=== PATIENT | female | born 1950 | race African-American/Black ===

== ENCOUNTER 2017-10-14 12:42 | Outpatient (CLI) | payer MEDICARE ==
--- NOTE | 2017-10-14 13:46 | MMO ---
SCREENING MAMMOGRAPHY: Date: 10-14-17 Comparison: 09-22-16, 08-07-15 History: Screening mammography. FINDINGS: This study is interpreted with the assistance of computer aided detection. Scattered fibroglandular densities are present. No architectural distortion of concerning calcification is seen. There is a questionable new focal asymmetry identified on left MLO view inferiorly, intermediate dept h, measuring in the 7 mm range. IMPRESSION: BIRADS 0 - incomplete. Further imaging assessment advised. Question new 7 mm focal asymmetry on left MLO view for which spot magnification compression imaging a nd focal pressed ultrasound suggested. POS: [facility]
== END 2017-10-14 12:43 | disposition home or self-care (01) ==
LOC: SCSMAMMO 12:42
PROVIDERS: ATTEND Family Medicine
DX: Z12.31 Encounter for screening mammogram for malignant neoplasm of breast (principal)
CPT/HCPCS: 77067

== ENCOUNTER 2017-10-21 09:05 | Outpatient (CLI) | payer MEDICARE | END 2017-10-21 09:06 | disposition home or self-care (01) | LOC: BICMAMMO 09:05 | PROVIDERS: ATTEND Family Medicine | DX: N64.89 Other specified disorders of breast (principal); Z80.3 Family history of malignant neoplasm of breast | CPT/HCPCS: 76642; 77065; G0279 ==

== ENCOUNTER → 2017-10-26 | Outpatient (CLI) | payer MEDICARE ==
--- NOTE | 2017-10-26 11:06 | RAD ---
TWO VIEWS CHEST: HISTORY: Dyspnea. COMPARISON: None. FINDINGS: Two views of the chest show normal sized cardiomediastinal silhouette. There is no evidence of consol idation, mass, or pleural effusion. The bones are unremarkable. IMPRESSION: No evidence of acute cardiopulmonary disease. POS: [facility]
== END ==
LOC: RAD 16:30
PROVIDERS: ATTEND Family Medicine
DX: R06.00 Dyspnea, unspecified (principal)
CPT/HCPCS: 71046

== ENCOUNTER 2017-11-16 10:10 | Outpatient (CLI) | payer MEDICARE ==
--- NOTE | 2017-11-16 11:50 | RAD ---
RADIOGRAPH CHEST 2 VIEWS: HISTORY: 67-year-old female with dyspnea. FINDINGS: There is no air space density, pulmonary edema, pleural effusion, pneumothorax, or cardiomegaly. IMPRESSION: No acute cardiopulmonary findings. jn [] POS: [facility]
== END 2017-11-16 10:11 | disposition home or self-care (01) ==
LOC: RAD 10:10
PROVIDERS: ATTEND Orthopaedic Surgery Sports Medicine
DX: R06.00 Dyspnea, unspecified (principal)
CPT/HCPCS: 71046

== ENCOUNTER 2017-12-05 01:49 | Emergency (ER) | payer MEDICARE ==
[2017-12-05 02:11] LABS: Bilirubin Negative (Negative); Blood, Urine Large (Negative); Glucose, Urine (Dipstick) Negative (Negative); Leukocyte Negative (Negative); Nitrite Negative (Negative); Protein, Urine (Dipstick) 100 mg/dL (Neg-Trace); Urobilinogen 0.2 mg/dL (0.2-1.0); pH, Urine 5.5 (5.0-9.0)
[2017-12-05 02:12] LABS: Clarity Hazy (Clear); Specific Gravity, Urine 1.026 (1.005-1.030)
[2017-12-05 02:13] LABS: Bacteria/HPF 1+ HPF (None Seen); Hyaline Casts/LPF 0-3 HYALINE CAST LPF (0-3 Hyaline); WBC/HPF 0-3 HPF (0-3)
[2017-12-05] MEDS ORDERED: traMADol HCl 50 MG TAB ONE (02:37)
[2017-12-05] MEDS ORDERED: Nitrofurantoin Macrocrystal 50 MG CAP ONE ×2 (02:38)
== END 2017-12-05 03:02 | disposition home or self-care (01) ==
LOC: SCSER 01:49
DX: N39.0 Urinary tract infection, site not specified (principal); K21.9 Gastro-esophageal reflux disease without esophagitis; J45.909 Unspecified asthma, uncomplicated; Z79.899 Other long term (current) drug therapy
CPT/HCPCS: 81003; 81015; 87086; 99283

== ENCOUNTER → 2017-12-20 | Outpatient (CLI) | payer MEDICARE | LOC: SLEEPLAB 17:00 | PROVIDERS: ATTEND Internal Medicine | DX: G47.33 Obstructive sleep apnea (adult) (pediatric) (principal); K21.9 Gastro-esophageal reflux disease without esophagitis | CPT/HCPCS: 95806 ==

== ENCOUNTER 2018-03-09 11:59 | Outpatient (CLI) | payer MEDICARE ==
--- NOTE | 2018-03-09 14:19 | CT ---
CT THORAX WITH IV CONTRAST: Date: 03-09-18 History: Cough for four years. Patient feels that something is stuck in throat. Comparison: None available. FINDINGS: The lungs are clear without evidence of a pulmonary nodule, mass, or pleural effusion. Tracheobronchi al airways also appear clear. There is no evidence of lymphadenopathy. The thoracic aorta is normal in caliber without evidence of aortic dissection. Visualized upper abdomen has a normal CT appearance. Osseous structures are intact. IMPRESSION: No acute findings are seen in the chest. POS: [facility]
== END 2018-03-09 12:00 | disposition home or self-care (01) ==
LOC: CT 11:59
PROVIDERS: ATTEND Internal Medicine
DX: R05 Cough (principal); G47.33 Obstructive sleep apnea (adult) (pediatric)
CPT/HCPCS: 71260; 82565; 94060; 94727; 94729

== ENCOUNTER 2018-10-25 08:24 | Outpatient (CLI) | payer MEDICARE ==
--- NOTE | 2018-10-25 09:49 | ULT ---
LEFT BREAST ULTRASOUND: Date: 10-25-18 Comparison: 10-21-17 History: Re-evaluate hypoechoic lesions seen on prior imaging. Technique: Multiplanar grayscale sonographic imaging of the left breast at the 5 o'clock and 9 o'cloc k position obtained. A stable hypoechoic area is seen at the 5 o'clock position of the left breast. T his finding is lobulated and hypoechoic with no internal blood flow and thin internal septations. Fin dings are most consistent with a cluster of small cysts. This could represent a normal intramamillary node as well. At the 9 o'clock position there is a 3 x 2 mm hypoechoic area which likely represents a small cyst as well. No solid lesion or suspicious mass. No abnormal shadowing. IMPRESSION: BIRADS category 2 - benign findings. Recommend annual screening mammography. POS: [facility]
--- NOTE | 2018-10-25 10:10 | MMO ---
Bilateral MAMMO Bilat Diag [facility]. CLINICAL HISTORY: Patient is 68 years old and is seen for diagnostic exam. The patient has the following family history of breast cancer: paternal aunt, great. The patient has no personal history of cancer. The patient has a history of right Excisional Biopsy in 2000 - benign. VIEWS: The views performed were: bilateral craniocaudal with tomosynthesis; bilateral mediolateral oblique with tomosynthesis; and bilateral mediolateral. FILMS COMPARED: The present examination has been compared to prior imaging studies performed at [facility] on 10/21/2017 and 10/25/2018, and at [facility] on 08/07/2015, 09/22/2016 and 10/14/2017. MAMMOGRAM FINDINGS: There are scattered fibroglandular densities. The area of concern noted within the left breast on prior imaging is less conspicuous on this examination. No concerning findings are seen on mammography or sonographic assessment. There are no suspicious masses, suspicious calcifications, or new areas of architectural distortion. IMPRESSION: THERE IS NO MAMMOGRAPHIC EVIDENCE OF MALIGNANCY. A ROUTINE FOLLOW-UP MAMMOGRAM IN 1 YEAR IS RECOMMENDED. THE RESULTS OF THIS EXAM WERE SENT TO THE PATIENT. ACR BI-RADS Category 2 - Benign finding MAMMOGRAPHY NOTE: 1. A negative mammogram report should not delay a biopsy if a dominant of clinically suspicious mass is present. 2. Approximately 10% to 15% of breast cancers are not detected by mammography. 3. Adenosis and dense breasts may obscure an underlying neoplasm.
--- NOTE | 2018-10-25 10:58 | BD ---
Exam: DEXA Bone Density History: Menopausal Lumbar Spine: BMD (g/cm2) L1 0.783 T-Score: -1.9 L2 0.765 T-Score: -2.4 L3 0.755 T-Score: -3.0 L4 0.929 T-Score: -1.2 L1-L4 0.813 T-Score: -2.1 Evidence for osteopenia with increased risk for fracture. Femoral Neck: 0.671 T-Score: -1.6 Total Femur: 0.887 T-Score: -0.5 Evidence for osteopenia with increased risk for fracture. Impression: FRAX score: Major osteoporotic fracture 4.2%, hip fracture 0.5%. POS: [facility]
== END 2018-10-25 08:25 | disposition home or self-care (01) ==
LOC: BICMAMMO 08:24
PROVIDERS: ATTEND Family Medicine
DX: Z78.0 Asymptomatic menopausal state (principal); R92.8 Other abnormal and inconclusive findings on diagnostic imaging of breast; M85.89 Other specified disorders of bone density and structure, multiple sites; Z80.3 Family history of malignant neoplasm of breast
CPT/HCPCS: 76642; 77066; 77080; G0279

== ENCOUNTER 2020-01-30 08:40 | Outpatient (CLI) | payer MEDICARE ==
--- NOTE | 2020-01-30 10:49 | MMO ---
Bilateral MAMMO Bilat Screen [facility]. CLINICAL HISTORY: Patient is 69 years old and is seen for screening. The patient has the following family history of breast cancer: paternal aunt, great. The patient has no personal history of cancer. The patient has a history of right Excisional Biopsy in 2000 - benign. VIEWS: The views performed were: bilateral craniocaudal with tomosynthesis and bilateral mediolateral oblique with tomosynthesis. FILMS COMPARED: The present examination has been compared to prior imaging studies performed at [facility] on 10/21/2017 and 10/25/2018, and at [facility] on 10/14/2017. This study has been interpreted with the assistance of computer-aided detection. MAMMOGRAM FINDINGS: There are scattered fibroglandular densities. There are no suspicious masses, suspicious calcifications, or new areas of architectural distortion. IMPRESSION: THERE IS NO MAMMOGRAPHIC EVIDENCE OF MALIGNANCY. A ROUTINE FOLLOW-UP MAMMOGRAM IN 1 YEAR IS RECOMMENDED. THE RESULTS OF THIS EXAM WERE SENT TO THE PATIENT. ACR BI-RADS Category 1 - Negative MAMMOGRAPHY NOTE: 1. A negative mammogram report should not delay a biopsy if a dominant of clinically suspicious mass is present. 2. Approximately 10% to 15% of breast cancers are not detected by mammography. 3. Adenosis and dense breasts may obscure an underlying neoplasm. Reported by: NATE SOTO MD Electonically Signed: [id number]
== END 2020-01-30 08:41 | disposition home or self-care (01) ==
LOC: BICMAMMO 08:40
PROVIDERS: ATTEND Family Medicine
DX: Z12.31 Encounter for screening mammogram for malignant neoplasm of breast (principal); Z80.3 Family history of malignant neoplasm of breast; Z91.89 Other specified personal risk factors, not elsewhere classified
CPT/HCPCS: 77063; 77067

== ENCOUNTER 2021-07-07 07:43 | Outpatient (CLI) | payer MEDICARE | END 2021-07-07 07:44 | disposition home or self-care (01) | LOC: CT 07:43 | PROVIDERS: ATTEND Family Medicine | DX: R10.30 Lower abdominal pain, unspecified (principal); N20.0 Calculus of kidney; N28.1 Cyst of kidney, acquired; K76.89 Other specified diseases of liver; K40.90 Unilateral inguinal hernia, without obstruction or gangrene, not specified as recurrent; L90.5 Scar conditions and fibrosis of skin | CPT/HCPCS: 74177 ==

== ENCOUNTER 2021-07-17 12:15 | Outpatient (CLI) | payer MEDICARE | END 2021-07-17 12:16 | disposition home or self-care (01) | LOC: BICMAMMO 12:15 | PROVIDERS: ATTEND Family Medicine | DX: Z12.31 Encounter for screening mammogram for malignant neoplasm of breast (principal); Z80.3 Family history of malignant neoplasm of breast; Z91.89 Other specified personal risk factors, not elsewhere classified | CPT/HCPCS: 77063; 77067 ==

== ENCOUNTER 2023-01-01 07:59 | Outpatient (CLI) | payer MEDICARE | END 2023-01-01 08:00 | disposition home or self-care (01) | LOC: BICMAMMO 07:59 | PROVIDERS: ATTEND Family Medicine | DX: Z12.31 Encounter for screening mammogram for malignant neoplasm of breast (principal); Z13.820 Encounter for screening for osteoporosis; M85.89 Other specified disorders of bone density and structure, multiple sites; Z80.3 Family history of malignant neoplasm of breast; Z78.0 Asymptomatic menopausal state; Z91.89 Other specified personal risk factors, not elsewhere classified | CPT/HCPCS: 77063; 77067; 77080 ==

== ENCOUNTER 2023-02-22 13:14 | Outpatient (CLI) | payer MEDICARE | END 2023-02-22 13:15 | disposition home or self-care (01) | LOC: BICMRI 13:14 | PROVIDERS: ATTEND Nurse Practitioner Family | DX: R51.9 Headache, unspecified (principal); I73.00 Raynaud's syndrome without gangrene; R53.82 Chronic fatigue, unspecified; I99.9 Unspecified disorder of circulatory system | CPT/HCPCS: 70551 ==

== ENCOUNTER 2024-01-19 14:55 | Outpatient (CLI) | payer MEDICARE | END 2024-01-19 14:56 | disposition home or self-care (01) | LOC: BICMAMMO 14:55 | PROVIDERS: ATTEND Nurse Practitioner Family | DX: Z12.31 Encounter for screening mammogram for malignant neoplasm of breast (principal); Z80.3 Family history of malignant neoplasm of breast; Z91.89 Other specified personal risk factors, not elsewhere classified | CPT/HCPCS: 77063; 77067 ==

== ENCOUNTER 2025-01-16 09:34 | Outpatient (CLI) | payer MEDICARE | END 2025-01-16 09:35 | disposition home or self-care (01) | LOC: SCSMRI 09:34 | PROVIDERS: ATTEND Orthopaedic Surgery | DX: M47.22 Other spondylosis with radiculopathy, cervical region (principal); M48.02 Spinal stenosis, cervical region; M48.03 Spinal stenosis, cervicothoracic region; M50.11 Cervical disc disorder with radiculopathy, high cervical region; M50.123 Cervical disc disorder at C6-C7 level with radiculopathy | CPT/HCPCS: 72141 ==

== ENCOUNTER 2025-04-17 15:21 | Outpatient (CLI) | payer MEDICARE | END 2025-04-17 15:22 | disposition home or self-care (01) | LOC: BICMRI 15:21 | PROVIDERS: ATTEND Orthopaedic Surgery | DX: M75.81 Other shoulder lesions, right shoulder (principal); M75.21 Bicipital tendinitis, right shoulder; M67.813 Other specified disorders of tendon, right shoulder; M75.101 Unspecified rotator cuff tear or rupture of right shoulder, not specified as traumatic; S43.401A Unspecified sprain of right shoulder joint, initial encounter ==